=== PATIENT | female | born 1990 ===

== ENCOUNTER → 2019-09-30 14:42 | Outpatient (CLI) | payer OTHER | END | disposition home or self-care (01) | LOC: LAB 09-26 14:18 | PROVIDERS: ATTEND General Practice | DX: Z20.828 Contact with and (suspected) exposure to other viral communicable diseases (principal); Z11.59 Encounter for screening for other viral diseases; E03.8 Other specified hypothyroidism ==

== ENCOUNTER 2019-10-07 13:33 | Outpatient (CLI) | payer OTHER | END 2019-10-07 13:34 | disposition home or self-care (01) | LOC: LAB 13:33 | PROVIDERS: ATTEND General Practice | DX: Z11.59 Encounter for screening for other viral diseases (principal); Z20.828 Contact with and (suspected) exposure to other viral communicable diseases ==

== ENCOUNTER 2022-07-27 14:45 | Emergency (ER) | payer OTHER ==
[~2022-07-27] VITALS: Ht 165.1 cm; Wt 63.5 kg
[2022-07-27] MEDS ORDERED: ZOFRAN8 MG PO (18:22)
[2022-07-27] MEDS ORDERED: PEPCID AC20 MG PO (18:22)
== END 2022-07-27 18:38 | disposition home or self-care (01) ==
LOC: ER 14:45
DX: R10.13 Epigastric pain (principal); Z88.8 Allergy status to other drugs, medicaments and biological substances